=== PATIENT | female | born 2000 | race Caucasian/White ===

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

== ENCOUNTER 2020-08-22 00:22 | Emergency (ER) | payer OTHER, MEDICAID ==
[2020-08-22 00:57] VITALS: BP 107/71
== END 2020-08-22 03:30 | disposition left against medical advice (07) ==
LOC: ER 00:22
DX: Z53.21 Procedure and treatment not carried out due to patient leaving prior to being seen by health care provider (principal)
CPT/HCPCS: 87070; 87880